=== PATIENT | female | born 1975 | race Caucasian/White ===

== ENCOUNTER 2018-03-02 09:53 | Emergency (ER) | payer OTHER ==
[~2018-03-02] VITALS: Ht 167.6 cm; Wt 62.0 kg
[2018-03-02 09:56] VITALS: BP 96/57; PULSE 111; RESP 16; TEMP 99.3; O2SAT 98
[2018-03-02] MEDS ORDERED: SODIUM CHLOR 0.9% 1000 ML INJ 1,000 ML IV ONE (10:15)
[2018-03-02] MEDS ORDERED: KETOROLAC TROMETHAMINE 30 MG/ML (IVP) VIAL IV PUSH ONE (10:15)
[2018-03-02] MEDS ORDERED: ONDANSETRON HCL 4 MG/2 ML VIAL IV PUSH ONE (10:15)
[2018-03-02] MEDS ORDERED: OSEL75 PO (10:29)
[2018-03-02] MEDS ORDERED: ZOFR4TAB3 SL (10:29)
--- NOTE | 2018-03-02 10:29 | PD ---
HPI Chief Complaint: Cold / Flu Symptoms Time Seen by Provider: 10:08 Travel History International Travel<30 days: No Contact w/Intl Traveler<30days: No Traveled to known affect area: No History of Present Illness HPI 43-year-old female complains of abdominal pain, nausea vomiting, diarrhea, fever chills, body ache. Patient states the symptoms started yesterday. Patient states that she has mild aching headache. Patient denies any neck pain. Patient denies any chest pain or shortness of breath. Patient denies any coughing congestion. Patient states that she has mild intermittent abdominal cramping. Patient has intermittent patient has intermittent nausea vomiting diarrhea since yesterday. Patient denies any dysuria frequency. Patient denies any chance of being . PFSH Past Medical History Medical History: Denies Significant Hx ?: Not LMP: NOW Past Surgical History Surgical History: No Previous Surgery Social History Alcohol Use: Yes (OCC) Tobacco Use: No Substance Use: No Allergies-Medications (Allergen,Severity, Reaction): Coded Allergies: No Known Allergies (Unverified , 03/02/18) Review of Systems General / Constitutional: No: Fever Eyes: No: Visual changes HENT: No: Headaches Cardiovascular: No: Chest Pain or Discomfort Respiratory: No: Shortness of Breath Gastrointestinal: Positive: Nausea, Vomiting, Diarrhea, No: Abdominal Pain Genitourinary: No: Dysuria Musculoskeletal: No: Pain Skin: No Rash Neurologic: No: Weakness Psychiatric: No: Depression Endocrine: No: Polydipsia Hematologic/Lymphatic: No: Easy Bruising Physical Exam Narrative GENERAL: Well-nourished, well-developed patient. SKIN: Focused skin assessment warm/dry. HEAD: Normocephalic. EYES: No scleral icterus. No injection or drainage. Throat: Nonerythematous. NECK: Supple, trachea midline. No JVD or lymphadenopathy. CARDIOVASCULAR: Regular rate and rhythm without murmurs, gallops, or rubs. RESPIRATORY: Breath sounds equal bilaterally. No accessory muscle use. GASTROINTESTINAL: Abdomen soft, non-tender, nondistended. MUSCULOSKELETAL: No cyanosis, or edema. BACK: Nontender without obvious deformity. No CVA tenderness. Neurologic exam normal. Data Data Last Documented VS Vital Signs Date Time Temp Pulse Resp B/P (MAP) Pulse Ox O2 Delivery O2 Flow Rate FiO2 03/02/18 09:56 99.3 111 16 96/57 (70) 98 Orders Orders Ns (Bolus) Inj (03/02/18 10:15) Ketorolac Inj (Toradol Inj) (03/02/18 10:15) Ondansetron Inj (Zofran Inj) (03/02/18 10:15) MDM Medical Decision Making Medical Screen Exam Complete: Yes Emergency Medical Condition: Yes Differential Diagnosis Differential diagnosis including viral syndrome, dehydration, electrolyte imbalance, gastroenteritis. Narrative Course 43-year-old female with body ache, abdominal cramping, nausea vomiting diarrhea. Normal saline solution 1 L IV bolus. Toradol 30 mg IV. Zofran 4 mg IV. Diagnosis Primary Impression: Influenza Patient Instructions: General Instructions Additional Instructions: Zofran as needed for nausea vomiting. Tylenol for aching pain. Encourage p.o. fluid. Follow-up with personal physician. Return if worse. Med/Other Pt SpecificInfo: Prescription(s) given Scripts Ondansetron Odt (Zofran Odt) 4 Mg Tab 4 MG SL Q6HR Y for Nausea/Vomiting, #10 TAB 0 Refills Prov: Morales Mendez MD 03/02/18 Oseltamivir (Tamiflu) 75 Mg Cap 75 MG PO BID for Mgmt Viral Infection, #10 CAP 0 Refills Prov: Morales Mendez MD 03/02/18 Disposition: 01 DISCHARGE HOME Condition: Stable Morales Mendez MD Mar 02, 2018 10:29
[2018-03-03] MEDS ORDERED: PRED50 PO (00:31)
== END 2018-03-02 11:23 | disposition home or self-care (01) ==
LOC: PHED 09:53
DX: J10.89 Influenza due to other identified influenza virus with other manifestations (principal); R11.2 Nausea with vomiting, unspecified; R19.7 Diarrhea, unspecified; R50.9 Fever, unspecified
CPT/HCPCS: 96361; 96374; 96375; 99284; J1885; J2405; J7030

== ENCOUNTER 2018-03-02 21:40 | Emergency (ER) | payer OTHER ==
[~2018-03-02] VITALS: Ht 167.6 cm; Wt 59.3 kg
[~2018-03-02 21:40] MED LIST: OSEL75 PO; ZOFR4TAB3 SL
[2018-03-02 23:12] VITALS: BP 89/55; PULSE 115; RESP 18; TEMP 100.4; O2SAT 100
[2018-03-02 23:29] VITALS: BP 84/60; PULSE 116; RESP 18; TEMP 99.7; O2SAT 99
--- NOTE | 2018-03-02 23:35 | PD ---
HPI Chief Complaint: Cold / Flu Symptoms Time Seen by Provider: 23:27 Travel History International Travel<30 days: No Contact w/Intl Traveler<30days: No Traveled to known affect area: No History of Present Illness HPI The patient is a 43-year-old female that complains of myalgias, sore throat and bilateral TMJ pain as well as pain on the attachments of the trapezius bilaterally to the skull for 1 day. She has had a low-grade fever. She denies any headache. She was seen here in the emergency department earlier today and was given Tamiflu. A strep screen and flu test were not done. She did not take the Tamiflu that was prescribed for her. She had diarrhea yesterday. She does have slight nausea. She was prescribed Zofran by Dr. Mendez. She states there is no possibility of . She denies any cough. She states that the joint pains and myalgias are the worst along with feeling generalized weak are the worst symptoms. PFSH Social History Alcohol Use: Yes (OCC) Tobacco Use: No Substance Use: No Allergies-Medications (Allergen,Severity, Reaction): Coded Allergies: No Known Allergies (Unverified , 03/02/18) Reported Meds & Prescriptions Reported Meds & Active Scripts Active Zofran Odt (Ondansetron Odt) 4 Mg Tab 4 Mg SL Q6HR PRN Tamiflu (Oseltamivir Phosphate) 75 Mg Cap 75 Mg PO BID Review of Systems Except as stated in HPI: all other systems reviewed are Neg Physical Exam Narrative GENERAL: The patient is alert, oriented 3 in slight apparent distress with her generalized myalgias. She is in no respiratory distress. Her vital signs show temperature 100.4 with heart rate 115 and blood pressure 89/55 but are otherwise normal. SKIN: Focused skin assessment warm/dry. HEAD: Atraumatic. Normocephalic. EYES: Pupils equal and round. No scleral icterus. No injection or drainage. ENT: No nasal bleeding or discharge. Mucous membranes pink and moist. The throat is slightly red without exudate or abscess. The tympanic membranes are clear. NECK: Trachea midline. No JVD. There is no meningismus and the patient flex his neck fully so that the chin touches the chest. CARDIOVASCULAR: Regular rate and rhythm. No murmur appreciated. RESPIRATORY: No accessory muscle use. Clear to auscultation. Breath sounds equal bilaterally. GASTROINTESTINAL: Abdomen soft, non-tender, nondistended. Hepatic and splenic margins not palpable. MUSCULOSKELETAL: No obvious deformities. No clubbing. No cyanosis. No edema. NEUROLOGICAL: Awake and alert. No obvious cranial nerve deficits. Motor grossly within normal limits. Normal speech. PSYCHIATRIC: Appropriate mood and affect; insight and judgment normal. Data Data Last Documented VS Vital Signs Date Time Temp Pulse Resp B/P (MAP) Pulse Ox O2 Delivery O2 Flow Rate FiO2 03/02/18 23:29 99.7 116 18 84/60 (68) 99 03/02/18 23:25 Room Air Orders Orders Group A Rapid Strep Screen (03/02/18 23:27) Influenzae A/B Antigen (03/02/18 23:27) Strep Culture (Group A) (03/02/18 23:30) MDM Medical Decision Making Medical Screen Exam Complete: Yes Emergency Medical Condition: Yes Medical Record Reviewed: Yes Interpretation(s) The group A strep screen is negative for group A strep antigen. The influenza A /B antigen is negative for flu a and flu B antigen. Differential Diagnosis Flu syndrome, nonspecific viral syndrome, ear infection, viral pharyngitis, strep pharyngitis, meningitis-highly unlikely Narrative Course The patient likely has a nonspecific viral syndrome. She has a viral pharyngitis as well. She will be given prednisone 50 mg twice daily for 4 days followed by 50 mg once daily for 4 days. Diagnosis Primary Impression: Viral syndrome Additional Impression: Viral pharyngitis Additional Instructions: As we discussed, the prednisone is 1 tablet twice daily for 4 days followed by 1 tablet once daily for 4 days. Follow-up with your primary care physician as soon as you get to [place]. Med/Other Pt SpecificInfo: Prescription(s) given Scripts Prednisone (Prednisone) 50 Mg Tab 50 MG PO BID for X 4 days than daily X 4 days, #12 TAB 0 Refills Prov: Lázaro Quesada MD 03/03/18 Disposition: 01 DISCHARGE HOME Condition: Stable Lázaro Quesada MD Mar 02, 2018 23:35
[2018-03-03] MEDS ORDERED: PRED50 PO (00:31)
[2018-03-03] MEDS ORDERED: predniSONE 20 MG TAB PO ONE (00:45)
[2018-03-03 00:47] VITALS: BP 86/54; TEMP 99.2
== END 2018-03-03 00:50 | disposition home or self-care (01) ==
LOC: PHED 21:40
DX: B34.9 Viral infection, unspecified (principal); J02.9 Acute pharyngitis, unspecified; R53.1 Weakness
CPT/HCPCS: 87081; 87804; 87880; 99283; J7512